=== PATIENT | female | born 1965 | race American Indian/Alaskan Native ===

== ENCOUNTER 2018-06-28 13:49 | Emergency (ER) | payer SELFPAY ==
--- NOTE | 2018-06-28 15:06 | XRay Report ---
FINAL REPORT EXAM: XR CHEST ROUTINE 2V HISTORY: Shortness of breath TECHNIQUE: Frontal and lateral chest x-ray. PRIORS: None. FINDINGS: Cardiac and mediastinal silhouette within normal limits. Lungs are normally expanded. No significant vascular congestion. No focal consolidation, apparent pleural effusion or pneumothorax. Degenerative change in the thoracic spine. IMPRESSION: 1. No acute findings.
[2018-06-28 15:17] LABS: Bacteria,Urine 1+ /HPF (Negative); Bilirubin,Urine NEG (Negative); Blood,Urine NEG (Negative); Color,Urine Straw (Yellow); Protein,Urine <15 mg/dL mg/dL (Negative); Urobilinogen,Urine < 2.0 mg/dL (<2.0)
--- NOTE | 2018-06-28 15:17 | Emergency Department Report ---
ED General Adult HPI - General Chief complaint: Dizziness Stated complaint: CHEST PAIN/DIZZINESS/WEAKNESS Time Seen by Provider: 06/28/18 14:33 Source: patient Mode of arrival: Ambulatory Limitations: No Limitations - History of Present Illness Initial comments: Patient is 52 years old female with history of hypertension. Patient presented to the ER complaining off one episode of dizziness started yesterday associated with sweating and shortness of breath. Patient stated that she called 911 and EMS examine and that since she was dehydrated but she didn't want to come to the ER how her vital sign otherwise was normal except for tachycardia. Patient denied any chest pain but she admitted shortness of breath. Patient denied any fever or cough, no nausea or vomiting. - Related Data Home Medications Medication Instructions Recorded Confirmed Last Taken amLODIPine [Norvasc] 2.5 mg PO DAILY 12/08/14 12/28/15 11/19/15 Previous Rx's Medication Instructions Recorded Last Taken Type Furosemide [Lasix] 40 mg PO DAILY #7 tablet 12/08/14 11/19/15 Rx Potassium Chloride [K-Dur] 20 meq PO QDAY #7 tablet 12/08/14 11/18/15 Rx hydroCHLOROthiazide [Hctz] 12.5 mg PO QDAY #31 capsule 12/28/15 Unknown Rx Allergies Allergy/AdvReac Type Severity Reaction Status Date / Time No Known Allergies Allergy Verified 12/28/15 10:20 ED Review of Systems ROS: Stated complaint: CHEST PAIN/DIZZINESS/WEAKNESS Other details as noted in HPI Comment: All other systems reviewed and negative Constitutional: denies: chills, fever Respiratory: shortness of breath. denies: cough, orthopnea, SOB with exertion, SOB at rest, wheezing Cardiovascular: palpitations. denies: chest pain, dyspnea on exertion, orthopnea Gastrointestinal: denies: abdominal pain, nausea, vomiting, diarrhea, constipation, hematemesis Musculoskeletal: denies: back pain Neurological: denies: headache, weakness ED Past Medical Hx - Past Medical History Hx Hypertension: Yes Hx Deep Vein Thrombosis: Yes Hx Kidney Stones: Yes Additional medical history: OBESITY - Surgical History Past Surgical History?: No Additional Surgical History: c-sectionx1 - Social History Smoking Status: Never Smoker Substance Use Type: None - Medications Home Medications: Home Medications Medication Instructions Recorded Confirmed Last Taken Type Furosemide [Lasix] 40 mg PO DAILY #7 tablet 0312/28/15 11/19/15 Rx Potassium Chloride [K-Dur] 20 meq PO QDAY #7 tablet 12/08/14 12/28/15 11/18/15 Rx amLODIPine [Norvasc] 2.5 mg PO DAILY 12/08/14 12/28/15 11/19/15 History hydroCHLOROthiazide [Hctz] 12.5 mg PO QDAY #31 capsule 12/28/15 Unknown Rx ED Physical Exam - General Limitations: No Limitations General appearance: alert, in no apparent distress - Head Head exam: Present: atraumatic, normocephalic, normal inspection - Eye Eye exam: Present: normal appearance, PERRL - ENT ENT exam: Present: normal exam, normal orophraynx, mucous membranes moist - Neck Neck exam: Present: normal inspection, full ROM. Absent: tenderness, meningismus, lymphadenopathy, thyromegaly - Respiratory Respiratory exam: Present: normal lung sounds bilaterally. Absent: respiratory distress, wheezes, rales, rhonchi, stridor, chest wall tenderness, accessory muscle use, decreased breath sounds, prolonged expiratory - Cardiovascular Cardiovascular Exam: Present: regular rate, normal rhythm, normal heart sounds - GI/Abdominal GI/Abdominal exam: Present: soft, normal bowel sounds. Absent: distended, tenderness, guarding, rebound, rigid, organomegaly, mass, bruit, pulsatile mass , hernia - Extremities Exam Extremities exam: Present: normal inspection, full ROM, normal capillary refill. Absent: tenderness, pedal edema, joint swelling, calf tenderness - Back Exam Back exam: Present: normal inspection, full ROM. Absent: paraspinal tenderness , vertebral tenderness - Neurological Exam Neurological exam: Present: alert, oriented X3, CN II-XII intact, normal gait, reflexes normal - Skin Skin exam: Present: warm, intact, normal color ED Course Vital Signs 06/28/18 06/28/18 06/28/18 14:14 15:00 15:15 Temperature 98 F Pulse Rate 88 76 Respiratory 18 22 Rate Blood Pressure 124/55 109/67 O2 Sat by Pulse 96 98 97 Oximetry 06/28/18 06/28/18 06/28/18 15:31 15:45 16:01 Temperature Pulse Rate 78 81 77 Respiratory 20 13 13 Rate Blood Pressure 103/64 103/64 103/64 O2 Sat by Pulse 99 98 99 Oximetry 06/28/18 16:08 Temperature 98.2 F Pulse Rate Respiratory Rate Blood Pressure O2 Sat by Pulse Oximetry ED Medical Decision Making - Lab Data Result diagrams: 06/28/18 15:23 06/28/18 15:23 - EKG Data -: EKG Interpreted by Me EKG shows normal: sinus rhythm Rate: normal - EKG Data Interpretation: no acute changes - Radiology Data Radiology results: report reviewed Referring Physician: PAU HOGAN Patient Name: PEDRO PARIS Date of : 1965 Sex: Female Report Date: 2018-06-28 Report Status: Finalized Findings [address] [address] Cat Scan Report Signed Patient: PEDRO PARIS MR#: [id number] : 1965 Acct:[id number] Age/Sex: 52 / F ADM Date: 06/28/18 Loc: ED Attending Dr: Ordering Physician: PAU HOGAN Date of Service: 06/28/18 Procedure(s): CT head/brain wo con Accession Number(s): [id number] cc: PAU HOGAN FINAL REPORT EXAM: CT HEAD/BRAIN WO CON HISTORY: dizziness TECHNIQUE: Noncontrast CT axial images of the brain. PRIORS: None. FINDINGS: No parenchymal mass, mass effect, hemorrhage, midline shift or hydrocephalus. No evidence of acute cortical infarct. No abnormal, extra-axial fluid or air collection. Osseous calvarium grossly intact. IMPRESSION: 1. No acute intracranial findings. Transcribed By: [facility] Dictated By: CHANDU VIDAL MD Electronically Authenticated By: CHANDU VIDAL MD Signed Date/Time: 06/28/18 1608 DD/ 1608 TD/TT: 06/28/18 1608 Referring Physician: PAU HOGAN Patient Name: EPDRO PARIS Date of : 1965 Sex: Female Report Date: 2018-06-28 Report Status: Finalized Findings [address] [address] Cat Scan Report Signed Patient: PEDRO PARIS MR#: [id number] : 1965 Acct:[id number] Age/Sex: 52 / F ADM Date: 06/28/18 Loc: ED Attending Dr: Ordering Physician: PAU HOGAN Date of Service: 06/28/18 Procedure(s): CT angio chest Accession Number(s): [id number] cc: PAU HOGAN FINAL REPORT EXAM: CT ANGIO CHEST HISTORY: CHEST PAIN WITH SYNCOPE TECHNIQUE: Spiral CTA of the chest after the uneventful administration of IV contrast. Multiplanar reformations. PRIORS: None. FINDINGS: Chest: The main and bilateral proximal pulmonary arteries are normally opacified without endoluminal filling defects. No apparent aneurysm, pseudoaneurysm or aortic dissection. No significant lymph node enlargement or axillary adenopathy. Lungs show no discrete parenchymal mass, focal consolidation or pleural effusions. No apparent pneumothorax. A few, probable small cysts in the left hepatic lobe, largest measuring approximately 2.3 cm. A few, small calcifications in the bilateral kidneys, largest measuring approximately 3-4 mm in right kidney, without significant hydronephrosis. Remainder of visualized upper abdomen grossly unremarkable. Degenerative change in the thoracic spine. IMPRESSION: 1. No evidence of large vessel or central pulmonary emboli. No acute consolidation. 2. Nonobstructing, bilateral renal calcifications. No significant hydronephrosis. Transcribed By: [facility] Dictated By: CHANDU VIDAL MD Electronically Authenticated By: CHANDU VIDAL MD Signed Date/Time: 06/28/181743 DD/ 43 TD/TT: 06/28/181743 - Medical Decision Making Ms Paris is 52 years old female with history of hypertension. Patient presented to the ER complaining off one episode of dizziness started yesterday associated with sweating and shortness of breath. Patient stated that she called 911 and EMS examine and that since she was dehydrated but she didn't want to come to the ER how her vital sign otherwise was normal except for tachycardia. Patient denied any chest pain but she admitted shortness of breath. Patient denied any fever or cough, no nausea or vomiting. Patient immediately put on a cardiac tech. CT brain is negative for acute finding. Patient d-dimer slightly elevated patient received a CTA chest with no acute pulmonary embolism. Patient Rastafari show a hypokalemia which is being corrected by potassium infusion and by mouth. I advised the patient to follow up with her primary care physician in the next 2 -3 days and to return to the ER if her symptoms are not improving. Critical Care Time: Yes Critical care time in (mins) excluding proc time.: 30 Critical care attestation.: If time is entered above; I have spent that time in minutes in the direct care of this critically ill patient, excluding procedure time. ED Disposition Clinical Impression: Dizziness, Hypokalemia Disposition: DC-01 TO HOME OR SELFCARE Is pt being admited?: No Condition: Stable Instructions: Chest Pain (ED), Hypokalemia (ED) Referrals: PRIMARY CARE, [Primary Care Provider] - 3-5 Days
[2018-06-28 15:42] LABS: Basophils # (Auto) 0.1 K/mm3 (0.0-0.1); Basophils % (Auto) 0.8 % (0.0-1.8); Eosinophils % (Auto) 0.4 % (0.0-4.3); Hematocrit 38.5 % (30.3-42.9); Hemoglobin 12.8 gm/dl (10.1-14.3); Lymphocytes # (Auto) 1.6 K/mm3 (1.2-5.4); Lymphocytes % (Auto) 22.1 % (13.4-35.0); Mean Corpuscular HGB Conc 33 % (30-34); Mean Corpuscular Hemoglobin 29 pg (28-32); Mean Corpuscular Volume 86 fl (79-97); Monocytes # (Auto) 0.4 K/mm3 (0.0-0.8); Monocytes % (Auto) 5.8 % (0.0-7.3); Platelet Count 251 K/mm3 (140-440); Red Blood Count 4.47 M/mm3 (3.65-5.03); Red Cell Distribution Width 13.7 % (13.2-15.2)
[2018-06-28 15:43] LABS: INR 0.99 (0.87-1.13)
[2018-06-28 15:44] LABS: Partial Thromboplastin Time 24.1 Sec. (24.2-36.6)
[2018-06-28 15:51] LABS: BUN/Creatinine Ratio 21; Blood Urea Nitrogen 17 mg/dL (7-17); Calcium 9.8 mg/dL (8.4-10.2); Hemolysis Index 6
[2018-06-28 15:53] LABS: Alanine Aminotransferase 18 units/L (7-56); Albumin 4.3 g/dL (3.9-5)
[2018-06-28 15:59] LABS: Bilirubin,Direct < 0.2 mg/dL (0-0.2)
[2018-06-28] MEDS ORDERED: K-DUR PO ONE (16:08)
--- NOTE | 2018-06-28 16:09 | Cat Scan Report ---
FINAL REPORT EXAM: CT HEAD/BRAIN WO CON HISTORY: dizziness TECHNIQUE: Noncontrast CT axial images of the brain. PRIORS: None. FINDINGS: No parenchymal mass, mass effect, hemorrhage, midline shift or hydrocephalus. No evidence of acute cortical infarct. No abnormal, extra-axial fluid or air collection. Osseous calvarium grossly intact. IMPRESSION: 1. No acute intracranial findings.
[2018-06-28] MEDS: KCL 10MEQ/100ML 10 MEQ/100 ML BAG IV SCH ×2 (17:45→19:50)
--- NOTE | 2018-06-28 17:45 | Cat Scan Report ---
FINAL REPORT EXAM: CT ANGIO CHEST HISTORY: CHEST PAIN WITH SYNCOPE TECHNIQUE: Spiral CTA of the chest after the uneventful administration of IV contrast. Multiplanar reformations. PRIORS: None. FINDINGS: Chest: The main and bilateral proximal pulmonary arteries are normally opacified without endoluminal filling defects. No apparent aneurysm, pseudoaneurysm or aortic dissection. No significant lymph node enlargement or axillary adenopathy. Lungs show no discrete parenchymal mass, focal consolidation or pleural effusions. No apparent pneumothorax. A few, probable small cysts in the left hepatic lobe, largest measuring approximately 2.3 cm. A few, small calcifications in the bilateral kidneys, largest measuring approximately 3-4 mm in right kidney, without significant hydronephrosis. Remainder of visualized upper abdomen grossly unremarkable. Degenerative change in the thoracic spine. IMPRESSION: 1. No evidence of large vessel or central pulmonary emboli. No acute consolidation. 2. Nonobstructing, bilateral renal calcifications. No significant hydronephrosis.
[2018-06-28] MEDS ORDERED: NACL 0.9% 500 ML 500 ML IV SCH (19:00)
[2018-06-28 20:26] VITALS: BP 106/52
== END 2018-06-28 20:53 | disposition home or self-care (01) ==
LOC: ED 13:49
DX: E87.6 Hypokalemia (principal); R42 Dizziness and giddiness; I10 Essential (primary) hypertension; Z86.718 Personal history of other venous thrombosis and embolism; Z79.899 Other long term (current) drug therapy
CPT/HCPCS: 36415; 70450; 71046; 71275; 80048; 80074; 81001; 85025; 85379; 85610; 85730; 93005; 93010; 96365; 99291; J3480; J7040; Q9967